=== PATIENT | female | born 1965 | race Caucasian/White ===

== ENCOUNTER 2021-03-26 15:36 | Emergency (ER) | payer MEDICAID ==
[~2021-03-26] VITALS: Ht 167.6 cm; Wt 57.0 kg
[2021-03-26] MEDS ORDERED: METOCLOPRAMIDE HCL 10MG/2ML VIAL IM ONE (18:30)
[2021-03-26 18:35] LABS: BASOPHILS % 0.8 % (0.0-2.0); EOSINOPHILS % 0.2 % (0.0-5.0); HEMATOCRIT. 37.5 % (36.0-48.0); HEMOGLOBIN. 12.8 g/dL (12.0-16.0); LYMPHOCYTES % 53.5 % (20.0-50.0); MEAN CORPUSCULAR HEMOGLOBIN 37.4 pg (28.0-32.0); MEAN CORPUSCULAR VOLUME 109.5 fL (81.0-99.0); MEAN PLATELET VOLUME 8.1 fl (7.4-10.4); MONOCYTES % 11.6 % (2.0-8.0); NEUTROPHILS % 33.9 % (40.0-76.0); PLATELET 118 x1000/uL (130-400); RED BLOOD CELL COUNT 3.43 mill/uL (4.2-5.4)
[2021-03-26 18:41] LABS: CHLORIDE 103 mEq/L (98-107)
[2021-03-26 19:02] LABS: ETHANOL BLOOD 326 mg/dL
[2021-03-26 22:37] VITALS: BP 129/79
== END 2021-03-26 22:55 | disposition home or self-care (01) ==
LOC: ER 15:36
DX: F10.129 Alcohol abuse with intoxication, unspecified (principal); F17.200 Nicotine dependence, unspecified, uncomplicated; R51.9 Headache, unspecified; Y90.8 Blood alcohol level of 240 mg/100 ml or more
CPT/HCPCS: 36415; 70450; 80048; 80320; 85025; 85651; 96372; 99284; J2765; G0480

== ENCOUNTER 2021-04-16 22:17 | Emergency (ER) | payer MEDICAID ==
[~2021-04-16] VITALS: Ht 167.6 cm; Wt 54.0 kg
[2021-04-16 22:22] VITALS: BP 112/78
[2021-04-16] MEDS ORDERED: IBUPROFEN 600MG TABLET PO ONE (23:15)
[2021-04-17] MEDS ORDERED: IBUP-2029 MT (00:13)
== END 2021-04-17 00:31 | disposition home or self-care (01) ==
LOC: ER 22:17
DX: R07.81 Pleurodynia (principal); F32.A Depression, unspecified; Z87.81 Personal history of (healed) traumatic fracture; Z88.6 Allergy status to analgesic agent
CPT/HCPCS: 99283